=== PATIENT | female | born 1990 | race Caucasian/White ===

== ENCOUNTER 2017-11-12 22:34 | Emergency (ER) | payer OTHER ==
[~2017-11-12] VITALS: Ht 149.9 cm; Wt 83.6 kg
[2017-11-12 23:49] VITALS: BP 117/82
[2017-11-12] MEDS ORDERED: PERCOCET 5/31 TABLET PO (23:50)
[2017-11-12] MEDS ORDERED: FLEXERIL10 MG PO (23:50)
[2017-11-12] MEDS ORDERED: ZOFRAN ODT4 MG PO (23:53)
== END 2017-11-13 00:05 | disposition home or self-care (01) ==
LOC: EME 22:34
DX: S40.011A Contusion of right shoulder, initial encounter (principal); V29.9XXA Motorcycle rider (driver) (passenger) injured in unspecified traffic accident, initial encounter; Z88.8 Allergy status to other drugs, medicaments and biological substances
CPT/HCPCS: 73030; 99281; 99283